=== PATIENT | female | born 1985 | race Caucasian/White ===

== ENCOUNTER 2017-05-01 08:54 | Emergency (ER) | payer OTHER ==
[~2017-05-01] VITALS: Ht 162.6 cm; Wt 53.5 kg
[2017-05-01 08:59] VITALS: Ht 162.6 cm; Wt 53.5 kg
[2017-05-01] MEDS ORDERED: SOD CHLORIDE 0.9% 1,000 ML IV STA (10:52)
--- NOTE | 2017-05-01 10:59 | ERA ---
ER Documentation Chief Complaint Date/Time DATE: 05/01/17 TIME: 10:54 Chief Complaint JUST HAD CHEMO 1 WK AGO WITH SOB, RASH, AND DIARRHEA PAIN HPI Patient is a 32-year-old female with breast cancer who presents to the ER with multiple complaints. She reports having gradual onset, constant, progressive dyspnea associated with generalized malaise and fatigue. She denies cough or chest pain. She denies pleuritic pain. She reports having sore throat and mouth pain. She reports having diarrhea with bloody stool and abdominal cramping that is similar to her previous colitis but worse. She denies vomiting. She reports having low-grade temp of 99.9 F oral. She reports having progressive vesicular pustular rash on her scalp, face and chest. Symptoms began 4 days ago and have been progressive. The patient had chemotherapy 1 week ago on the first course of a a new protocol. The patient states that she fasted for a PET scan that she was supposed to have today, but she called her oncologist, Dr. Reynolds, prior to going to the clinic, and was told to go to the ER instead. ROS All systems reviewed and are negative except as per history of present illness. Medications Home Meds Active Scripts Hydrocortisone Acetate (ANTI-ITCH) 28 Gm Oint...g., 28 GM TP BID for 5 Days Prov:AXEL VERDIN MD 05/01/17 Dicyclomine Hcl* (Bentyl*) 10 Mg Capsule, 10 MG PO QID, #20 CAP Prov:AXEL VERDIN MD 05/01/17 Doxycycline Monohydrate* (Doxycycline Monohydrate*) 100 Mg Tablet, 100 MG PO BID for 10 Days, TAB Prov:AXEL VERDIN MD 05/01/17 Reported Medications Leuprolide Acetate (Lupron Depot) 7.5 Mg Syringekit, 7.5 MG IM DIRECTED 05/01/17 Dexamethasone* (Dexamethasone*) 4 Mg Tablet, 4 MG PO Q6, TAB 05/01/17 Alprazolam* (Alprazolam*) 0.5 Mg Tablet, 0.5 MG PO DAILY Y for ANXIETY, TAB 05/01/17 Oxycodone HCl/Acetaminophen (Percocet 10-325 mg Tablet) 1 Each Tablet, 1 EACH PO DAILY Y for SEVERE PAIN LEVEL 7-10, TAB 05/01/17 Ondansetron Hcl* (Zofran*) 8 Mg Tablet, 8 MG PO Q6H Y for NAUSEA AND OR VOMITING , TAB 05/01/17 [Mercaptopurine] No Conflict Check, 50 MG PO DAILY 05/01/17 Discontinued Reported Medications Mercaptopurine (Purixan) 20 Mg/1 Ml Oral.susp, 50 MG PO 05/01/17 Allergies Allergies: Coded Allergies: Sulfa (Sulfonamide Antibiotics) (Verified Allergy, Severe, 05/01/17) acetaminophen (Verified Allergy, Severe, 05/01/17) hydrocodone (Verified Allergy, Severe, 05/01/17) rabeprazole (Verified Allergy, Severe, 05/01/17) PMhx/Soc Past medical history: Breast cancer, colitis Past surgical history: Bilateral wrist Social history: Denies tobacco or alcohol History of Surgery: Yes (abdominal surgery , b/l wrist ) Anesthesia Reaction: No Hx Neurological Disorder: No Hx Respiratory Disorders: No Hx Cardiac Disorders: No Hx Psychiatric Problems: No Hx Miscellaneous Medical Probl: Yes (rt breast ca , colitis ) Hx Alcohol Use: No Hx Substance Use: No Hx Tobacco Use: No Smoking Status: Never smoker FmHx Family History: No coronary disease, No diabetes Physical Exam Vitals Vital Signs Date Time Temp Pulse Resp B/P Pulse Ox O2 Delivery O2 Flow Rate FiO2 05/01/17 12:51 82 18 111/74 99 Room Air 05/01/17 10:34 80 18 121/75 99 Room Air 05/01/17 08:59 98.8 114 18 123/80 99 Physical Exam Const: Alert, appears anxious Head: Atraumatic, Diffuse vesicular and pustular rash on scalp and face extending to the chest Eyes: Normal Conjunctiva, No pallor, no icterus ENT: Normal External Ears and nose. Mild pharyngeal injection and mucosal inflammation Neck: Full range of motion..~ No meningismus. Resp: Clear to auscultation bilaterally, No wheezes, no rales Cardio: Mild tachycardia, regular rhythm, no murmurs Abd: Soft, non distended. Mild diffuse tenderness, no guarding, no rebound Skin: No petechiae or rashes Back: No midline or flank tenderness Ext: No cyanosis, or edema Neur: Awake and alert, Cranial nerves II through XII intact bilaterally, strength and sensation full for extremity Psych: Normal Mood and Affect Result Diagram: 05/01/17 1100 05/01/17 1100 Results 24 hrs Laboratory Tests Test 05/01/17 11:00 White Blood Count 1.710^3/ul Red Blood Count 4.1210^6/ul Hemoglobin 13.4g/dl Hematocrit 39.8% Mean Corpuscular Volume 96.6fl Mean Corpuscular Hemoglobin 32.5pg Mean Corpuscular Hemoglobin Concent 33.7g/dl Red Cell Distribution Width 12.6% Platelet Count 84308^3/UL Mean Platelet Volume 9.7fl Neutrophils % % Segmented Neutrophils % (Manual) 3% Band Neutrophils % (Manual) 5% Lymphocytes % % Lymphocytes % (Manual) 65% Reactive Lymphocytes % (Manual) 7% Monocytes % % Monocytes % (Manual) 15% Eosinophils % % Eosinophils % (Manual) 1% Basophils % % Basophils % (Manual) 2% Myelocytes % (Manual) 2% Nucleated Red Blood Cells % 1% Neutrophils # 10^3/ul Neutrophils # (Manual) 0.110^3/ul Band Neutrophils # 0.010^3/ul Absolute Lymphocytes (Manual) 1.110^3/ul Lymphocytes # 10^3/ul Reactive Lymphocytes # 0.110^3/ul Monocytes # 10^3/ul Absolute Monocytes (Manual) 0.210^3/ul Eosinophils # 10^3/ul Basophils # 10^3/ul Basophils # (Manual) 0.010^3/ul Myelocytes # 0.010^3/ul Nucleated Red Blood Cells # 10^3/ul White Cell Morphology Comment @See below Platelet Estimate NORMAL Polychromasia 3+ Poikilocytosis 1+ Anisocytosis 1+ Red Cell Morphology Comment @See below Prothrombin Time 12.2Sec Prothrombin Time Ratio 1.0 INR International Normalized Ratio 0.91 Activated Partial Thromboplast Time 31.2Sec Urine Color YELLOW Urine Clarity CLEAR Urine pH 5.0 Urine Specific [place] 1.028 Urine Ketones NEGATIVEmg/dL Urine Nitrite NEGATIVEmg/dL Urine Bilirubin NEGATIVEmg/dL Urine Urobilinogen NEGATIVEmg/dL Urine Leukocyte Esterase NEGATIVELeu/ul Urine Hemoglobin NEGATIVEmg/dL Urine Glucose NEGATIVEmg/dL Urine Total Protein NEGATIVEmg/dl Sodium Level 136mmol/L Potassium Level 4.5mmol/L Chloride Level 102mmol/L Carbon Dioxide Level 29mmol/L Anion Gap 10 Blood Urea Nitrogen 20mg/dl Creatinine 0.75mg/dl Glucose Level 91mg/dl Lactic Acid Level 0.7mmol/L Calcium Level 9.0mg/dl Total Bilirubin 0.4mg/dl Direct Bilirubin 0.00mg/dl Indirect Bilirubin 0.4mg/dl Aspartate Amino Transf (AST/SGOT) 26IU/L Alanine Aminotransferase (ALT/SGPT) 43IU/L Alkaline Phosphatase 67IU/L Troponin I < 0.012ng/ml B-Type Natriuretic Peptide 31PG/ML Total Protein 6.9g/dl Albumin 4.0g/dl Globulin 2.90g/dl Albumin/Globulin Ratio 1.37 Serum HCG, Qualitative NEGATIVE Current Medications Medications (Trade) Dose Ordered Sig/Rosa Route PRN Reason Start Time Stop Time Status Last Admin Dose Admin Sodium Chloride (NS) 1,000 ml @ 1,000 mls/hr Q1H STAT IV 05/01/17 10:52 05/01/17 11:51 DC 05/01/17 11:12 Ondansetron HCl (Zofran Inj) 4 mg ONCE STAT IV 05/01/17 11:43 05/01/17 11:47 DC 05/01/17 11:54 Morphine Sulfate (morphine) 4 mg ONCE STAT IV 05/01/17 11:43 05/01/17 11:47 DC 05/01/17 11:55 IV Flush 10 ml 10 ml STK-MED ONCE .ROUTE 05/01/17 12:23 05/01/17 12:24 DC Sodium Chloride (NS) 100 ml @ ud STK-MED ONCE .ROUTE 05/01/17 12:23 05/01/17 12:24 DC Iodixanol 100 ml 100 ml STK-MED ONCE .ROUTE 05/01/17 12:23 05/01/17 12:24 DC Cefepime HCl (Maxipime 1gm/50 ml (Pmx)) 50 ml @ 100 mls/hr ONCE ONCE IVPB 05/01/17 14:00 05/01/17 14:29 DC 05/01/17 13:55 Dicyclomine HCl (Bentyl) 10 mg ONCE ONCE PO 05/01/17 14:00 05/01/17 14:01 DC 05/01/17 13:54 Procedures/MDM EKG read by me: Time 1059, rate 78 Rhythm: Normal sinus [place]: Normal Intervals: Normal ST-T waves: no ischemic changes Ectopy: No Q-waves: No Impression: No evidence of ischemia or arrhythmia MDM: Patient is a 32-year-old female who recently started chemotherapy for breast cancer and presents to ER with multiple complaints. Her first complaint is shortness of breath. She had a mild tachycardia on ER arrival. She denies cough. Given history of cancer, CTPA was performed and is negative for pulmonary embolism. Patient's tachycardia resolved spontaneously, she had no hypoxemia, and no signs of strain on EKG. I do not believe further workup for PE is necessary at this time. She is not tachypneic. Second, the patient reports having exacerbation of her colitis with small amount of bloody stool. She has no signs of anemia and has a relatively benign abdominal exam. I will give her a prescription for Bentyl, and advised her to use her Percocet as needed. I advised her to follow-up with her oncologist for possible GI referral. Symptoms are likely due to chemotherapy. Third, the patient reports having a temperature of 99.9 Fahrenheit and generalized malaise for several days. She has not had a fever greater than 100.4 Fahrenheit. She does however , have severe neutropenia. I discussed this with her oncologist, Dr. Reynolds, and we agreed that the patient did not require admission, but would benefit from a prophylactic dose of cefepime, which is given. Fourth, the patient has an acneiform rash on her face and chest. I found evidence that this can be associated with 1 of her chemotherapeutic agents, and benefits from treatment with doxycycline and topical steroids, which I discussed with her oncologist, and will provide prescriptions for. The patient has signs of anxiety associated with the multitude of symptoms related to her chemotherapy, but she seems significantly better after receiving fluids and reassurance. She will be discharged from the hospital, and will follow up with her oncologist in the clinic later today for further counseling. She is also scheduled for a PET scan tomorrow. There is no evidence of serious condition requiring hospitalization at this time. Departure Diagnosis: Primary Impression: Colitis Additional Impressions: Neutropenia Qualified Code: D70.1 - Chemotherapy-induced neutropenia Acneiform rash Dyspnea Qualified Code: R06.02 - Shortness of breath Condition: AXEL Klein MD May 01, 2017 10:59
[2017-05-01] MEDS ORDERED: MERCAPTOPURINE PO (11:09)
[2017-05-01] MEDS ORDERED: [UNRECOGNIZED DRUG - CODE] PO (11:09)
[2017-05-01] MEDS ORDERED: ONDA8TAB9 PO (11:10)
[2017-05-01] MEDS ORDERED: OXYC-209 PO (11:11)
--- NOTE | 2017-05-01 11:11 | RADRPT ---
PROCEDURE: XR Chest. CLINICAL INDICATION: Shortness of breath. TECHNIQUE: Single frontal view. COMPARISON: None. FINDINGS: The lungs are clear. The heart size is normal. There is no pleural effusion. There is no pneumothorax. IMPRESSION: 1. Normal chest radiograph. RPTAT: QQ .Mundo Wagoner MD, Date Time Electronically viewed and signed by .Mundo Wagoner MD, on 05/01/2017 11:10 .R/
[2017-05-01] MEDS ORDERED: ALPR0.5T6 PO (11:16)
[2017-05-01] MEDS ORDERED: DEXA4TAB PO (11:20)
[2017-05-01] MEDS ORDERED: LEUP7.5S IM (11:21)
[2017-05-01 11:25] LABS: ABNORMAL IP MESSAGE 1; HEMATOCRIT 39.8 % (37.0-47.0); HEMOGLOBIN 13.4 g/dl (12.0-16.0); MEAN CORPUSCULAR HEMOGLOBIN 32.5 pg (29.0-33.0); MEAN CORPUSCULAR HGB CONC 33.7 g/dl (32.0-37.0); MEAN CORPUSCULAR VOLUME 96.6 fl (82.0-101.0); MEAN PLATELET VOLUME 9.7 fl (7.4-10.4); PLATELET COUNT 283 10^3/UL (140-415); RED BLOOD COUNT 4.12 10^6/ul (4.20-5.40); RED CELL DISTRIBUTION WIDTH 12.6 % (11.5-14.5); WHITE BLOOD COUNT 1.7 10^3/ul (4.8-10.8)
[2017-05-01 11:29] LABS: ADD UMIC NO; UR ASCORBIC ACID NEGATIVE (NEGATIVE); UR BILIRUBIN (Dip) NEGATIVE (NEGATIVE); UR BLOOD (Dip) NEGATIVE (NEGATIVE); UR CLARITY CLEAR (CLEAR); UR COLOR YELLOW (YELLOW); UR GLUCOSE (Dip) NEGATIVE (NEGATIVE); UR KETONES (Dip) NEGATIVE (NEGATIVE); UR LEUKOCYTE ESTERASE (Dip) NEGATIVE Leu/ul (NEGATIVE); UR NITRITE (Dip) NEGATIVE (NEGATIVE); UR SPECIFIC GRAVITY (Dip) 1.028 (1.003-1.030); UR TOTAL PROTEIN (Dip) NEGATIVE (NEGATIVE); UR UROBILINOGEN (Dip) NEGATIVE (NEGATIVE)
[2017-05-01 11:39] LABS: POSITIVE DIFF @See below
[2017-05-01 11:43] LABS: INR 0.91; PROTIME 12.2 Sec (12.2-14.2)
[2017-05-01] MEDS ORDERED: ONDANSETRON 4 MG INJ IV STA (11:43)
[2017-05-01] MEDS ORDERED: morphine 4 MG/ML VIAL IV STA (11:43)
[2017-05-01 11:44] LABS: PARTIAL THROMBOPLASTIN TIME 31.2 Sec (25.0-35.0)
[2017-05-01 11:47] LABS: ALANINE AMINOTRANSFERASE 43 IU/L (13-69); ALBUMIN/GLOBULIN RATIO 1.37; ALKALINE PHOSPHATASE 67 IU/L (42-121); ANION GAP 10 (8-16); ASPARTATE AMINO TRANSFERASE 26 IU/L (15-46); BILIRUBIN,INDIRECT 0.4 mg/dl (0-1.1); BILIRUBIN,TOTAL 0.4 mg/dl (0.2-1.3); BLOOD UREA NITROGEN 20 mg/dl (7-20); CARBON DIOXIDE 29 mmol/L (21-31); CHLORIDE 102 mmol/L (97-110); CREATININE 0.75 mg/dl (0.44-1.00); GLUCOSE 91 mg/dl (70-220); POTASSIUM 4.5 mmol/L (3.5-5.1); SODIUM 136 mmol/L (135-144); TOTAL PROTEIN 6.9 g/dl (6.1-8.1)
[2017-05-01 11:57] LABS: B-TYPE NATRIURETIC PEPTIDE 31 PG/ML (0-125)
[2017-05-01 11:58] LABS: TROPONIN-I < 0.012 ng/ml (0.00-0.12)
[2017-05-01 12:23] LABS: ANISOCYTOSIS 1+ (0-0); BASOPHILS % (M) 2 % (0-2); EOSINOPHILS % (M) 1 % (0-7); ERYTHROBLAST% (NRBC) (M) 1 % (0-0); MONOCYTES % (M) 15 % (0-11); MYELOCYTES % (M) 2 % (0-0); PLATELET ESTIMATE NORMAL; POIKILOCYTOSIS 1+ (0-0); POLYCHROMASIA 3+ (0-0); RBC MORPHOLOGY COMMENT @See below; REACTIVE LYMPHOCYTES% (M) 7 % (0-0)
[2017-05-01] MEDS ORDERED: IODIXANOL LOCM 100 ML BTL ONE (12:23)
[2017-05-01] MEDS ORDERED: SOD CHLORIDE 0.9% 100 ML ONE (12:23)
--- NOTE | 2017-05-01 13:08 | RADRPT ---
PROCEDURE: CT angiogram of the chest with contrast. CLINICAL INDICATION: History of breast cancer. Shortness of breath. Rule out pulmonary embolism. TECHNIQUE: CT scan of the chest with contrast was performed on a multidetector high-resolution CT scan. The patient was scanned following the uncomplicated intravenous administration of 100 ml Visi paque 320. Coronal and sagittal reformatted images were obtained from the axial source images. Stand meir CT angiogram of the chest with contrast protocols were performed. 2-D and 3-D reformats were per formed. The total exam CTDI equals 22.53 mGy and the total exam DLP equals 244.59 mGy-cm. One or more of the following dose reduction techniques were used: - Automated exposure control. - Adjustment of the mA and/or kV according to patient size. Use of iterative reconstruction technique. COMPARISON: Chest earlier same day FINDINGS: Pulmonary outflow tract, right and left main pulmonary arteries, right and left interlobar and prima ry intersegmental pulmonary arteries are well enhanced without filling defects. Specifically no evid ence of central pulmonary emboli. No evidence of pulmonary arterial hypertension. No evidence of rig ht heart strain. The aorta is unremarkable without aneurysm or dissection. The brachial cephalic artery, right and l eft subclavian arteries and proximal aspects of the right and left common carotid and vertebral brenda henry are unremarkable. The celiac axis, SMA and solitary right and left renal arteries are unremarka ble. In the superior right middle lobe is a 1.5 cm bulla. No other bulla or blebs. No evidence of pulmona ry nodules. No evidence of acute infiltrates. No evidence of pleural or pericardial effusions and pn eumothoraces. No evidence of mediastinal hilar or axillary lymphadenopathy. Images of the upper abdomen are unremarkable. The thoracic and upper abdominal naylor are unremarkabl e. There is mild dextrorotatory scoliosis of the thoracic spine. The osseous structures are otherwis e unremarkable without acute osseous findings are osteoblastic/osteolytic lesion. IMPRESSION: 1. No evidence of central pulmonary emboli. No evidence of right heart strain or pulmonary arterial hypertension. 2. No evidence of aortic aneurysm or dissection. 3. No evidence of thoracic effusions, pneumothorax, lymphadenopathy or acute infiltrates. RPTAT:AAJJ Katalina Garcia, Physician Date Time Electronically viewed and signed by Katalina Garcia Physician on 05/01/2017 13:08 BM/
[2017-05-01] MEDS ORDERED: CEFEPIME 1GM/50 ML (PMX) 50 ML IVPB ONE (14:00)
[2017-05-01] MEDS ORDERED: DICYCLOMINE 10 MG CAP PO ONE (14:00)
[2017-05-01] MEDS ORDERED: DICY10CA60 PO (14:16)
[2017-05-01] MEDS ORDERED: DOXY-220 PO (14:16)
[2017-05-01] MEDS ORDERED: HYDR28OI6 TP (14:16)
[2017-05-01 14:45] VITALS: BP 112/75; PULSE 78; RESP 18; TEMP 98.2
== END 2017-05-01 14:51 | disposition home or self-care (01) ==
LOC: E/R 08:54
DX: K52.9 Noninfective gastroenteritis and colitis, unspecified (principal); D70.1 Agranulocytosis secondary to cancer chemotherapy; R50.81 Fever presenting with conditions classified elsewhere; L27.0 Generalized skin eruption due to drugs and medicaments taken internally; C50.919 Malignant neoplasm of unspecified site of unspecified female breast
CPT/HCPCS: 36415; 71010; 71275; 80053; 81003; 83605; 83880; 84484; 84703; 85025; 85610; 85730; 93005; 96374; 96375; 99285; J0692; J2270; J2405; J7030; Q9967

== ENCOUNTER 2017-05-01 20:48 | Inpatient (IN) | payer OTHER ==
[~2017-05-01] VITALS: Ht 162.6 cm; Wt 54.0 kg
[~2017-05-01 20:48] MED LIST: ALPR0.5T6 PO; DEXA4TAB PO; DICY10CA60 PO; DOXY-220 PO; HYDR28OI6 TP; LEUP7.5S IM; MERCAPTOPURINE PO; ONDA8TAB9 PO; OXYC-209 PO; [UNRECOGNIZED DRUG - CODE] PO
[2017-05-01] MEDS ORDERED: CEFEPIME 2GM/50 ML (PMX) 50 ML IVPB STA (21:08)
[2017-05-01] MEDS ORDERED: SODIUM CHLORIDE 0.9% 1L BAG IV* STA (21:08)
[2017-05-01] MEDS ORDERED: METHYLPREDNISOLONE 125 MG INJ IV ONE (21:30)
[2017-05-01 22:00] LABS: ADD UMIC NO; UR ASCORBIC ACID NEGATIVE (NEGATIVE); UR BACTERIA FEW /HPF (NONE SEEN); UR BILIRUBIN (Dip) NEGATIVE (NEGATIVE); UR BLOOD (Dip) NEGATIVE (NEGATIVE); UR CLARITY CLEAR (CLEAR); UR COLOR YELLOW (YELLOW); UR GLUCOSE (Dip) NEGATIVE (NEGATIVE); UR KETONES (Dip) 2+ mg/dL (NEGATIVE); UR LEUKOCYTE ESTERASE (Dip) NEGATIVE Leu/ul (NEGATIVE); UR NITRITE (Dip) NEGATIVE (NEGATIVE); UR RBC 1 /HPF (0-5); UR SPECIFIC GRAVITY (Dip) 1.026 (1.003-1.030); UR TOTAL PROTEIN (Dip) NEGATIVE (NEGATIVE); UR UROBILINOGEN (Dip) NEGATIVE (NEGATIVE)
[2017-05-01] MEDS ORDERED: IBUPROFEN 800 MG TAB PO ONE (22:00)
[2017-05-01 22:03] LABS: INR 0.96; PROTIME 12.8 Sec (12.2-14.2)
[2017-05-01 22:05] LABS: ABNORMAL IP MESSAGE 1; ALBUMIN 3.6 g/dl (3.3-4.9); ALBUMIN/GLOBULIN RATIO 1.28; BILIRUBIN,INDIRECT 0.9 mg/dl (0-1.1); BILIRUBIN,TOTAL 0.9 mg/dl (0.2-1.3); CALCIUM 8.4 mg/dl (8.4-10.2); CREATININE 0.64 mg/dl (0.44-1.00); HEMATOCRIT 34.2 % (37.0-47.0); MEAN CORPUSCULAR HEMOGLOBIN 32.5 pg (29.0-33.0); MEAN CORPUSCULAR HGB CONC 35.1 g/dl (32.0-37.0); MEAN CORPUSCULAR VOLUME 92.7 fl (82.0-101.0); MEAN PLATELET VOLUME 10.2 fl (7.4-10.4); PLATELET COUNT 250 10^3/UL (140-415); POTASSIUM 3.5 mmol/L (3.5-5.1); RED BLOOD COUNT 3.69 10^6/ul (4.20-5.40); RED CELL DISTRIBUTION WIDTH 12.3 % (11.5-14.5); TOTAL PROTEIN 6.4 g/dl (6.1-8.1); WHITE BLOOD COUNT 0.8 10^3/ul (4.8-10.8)
[2017-05-01 22:06] LABS: POSITIVE DIFF @See below
[2017-05-01 22:10] LABS: PARTIAL THROMBOPLASTIN TIME 35.4 Sec (25.0-35.0)
[2017-05-01 22:35] VITALS: TEMP 99.8
[2017-05-01 22:38] LABS: EOSINOPHILS % (M) 1 % (0.0-7.0); LYMPHOCYTES # 0.3 10^3/ul (0.8-2.9); MONOCYTE # 0.3 10^3/ul (0.3-0.9); MONOCYTES % (M) 39 % (0-11)
--- NOTE | 2017-05-01 22:50 | ERA ---
ER Documentation Chief Complaint Date/Time DATE: 05/01/17 TIME: 22:41 Chief Complaint fever since today; pt was here earlier today for same reason; hx of CA HPI 32-year-old female history of breast cancer recently initiating chemotherapy 1 week ago who presents with neutropenic fever. The patient was seen here earlier today and diagnosed with a rash secondary to chemotherapy. She had a thorough workup and was discharged. However, the patient spiked a temperature at home and is now 103. She does describe left lower quadrant abdominal pain that is moderate and constant. She has a history of ulcerative colitis. She states that she has been dealing with a flare over the last several days. She denies any cough or shortness of breath, no dysuria urgency or frequency. ROS All systems reviewed and are negative except as per history of present illness. Medications Home Meds Active Scripts Hydrocortisone Acetate (ANTI-ITCH) 28 Gm Oint...g., 28 GM TP BID for 5 Days Prov:AXEL VERDIN MD 05/01/17 Dicyclomine Hcl* (Bentyl*) 10 Mg Capsule, 10 MG PO QID, #20 CAP Prov:AXEL VERDIN MD 05/01/17 Doxycycline Monohydrate* (Doxycycline Monohydrate*) 100 Mg Tablet, 100 MG PO BID for 10 Days, TAB Prov:AXEL VERDIN MD 05/01/17 Reported Medications Leuprolide Acetate (Lupron Depot) 7.5 Mg Syringekit, 7.5 MG IM DIRECTED 05/01/17 Dexamethasone* (Dexamethasone*) 4 Mg Tablet, 4 MG PO Q6, TAB 05/01/17 Alprazolam* (Alprazolam*) 0.5 Mg Tablet, 0.5 MG PO DAILY Y for ANXIETY, TAB 05/01/17 Oxycodone HCl/Acetaminophen (Percocet 10-325 mg Tablet) 1 Each Tablet, 1 EACH PO DAILY Y for SEVERE PAIN LEVEL 7-10, TAB 05/01/17 Ondansetron Hcl* (Zofran*) 8 Mg Tablet, 8 MG PO Q6H Y for NAUSEA AND OR VOMITING , TAB 05/01/17 [Mercaptopurine] No Conflict Check, 50 MG PO DAILY 05/01/17 Discontinued Reported Medications Mercaptopurine (Purixan) 20 Mg/1 Ml Oral.susp, 50 MG PO 05/01/17 Allergies Allergies: Coded Allergies: Sulfa (Sulfonamide Antibiotics) (Verified Allergy, Severe, 05/01/17) acetaminophen (Verified Allergy, Severe, 05/01/17) hydrocodone (Verified Allergy, Severe, 05/01/17) rabeprazole (Verified Allergy, Severe, 05/01/17) PMhx/Soc History of Surgery: Yes (abdominal surgery , b/l wrist ) Anesthesia Reaction: No Hx Neurological Disorder: No Hx Respiratory Disorders: No Hx Cardiac Disorders: No Hx Psychiatric Problems: No Hx Miscellaneous Medical Probl: Yes (rt breast ca , colitis ) Hx Alcohol Use: No Hx Substance Use: No Hx Tobacco Use: No Smoking Status: Never smoker FmHx Family History: No diabetes Physical Exam Vitals Vital Signs Date Time Temp Pulse Resp B/P Pulse Ox O2 Delivery O2 Flow Rate FiO2 05/01/17 22:35 99.8 100 05/01/17 20:59 103.1 140 23 112/69 100 Physical Exam General: Well developed, well nourished, no acute distress Head: Normocephalic, atraumatic. Eyes: Pupils equally reactive, EOM intact ENT: Moist mucous membranes Neck: Supple, no lymphadenopathy Respiratory: Lungs clear bilaterally, no distress Cardiovascular: RRR, no murmurs, rubs, or gallops Abdominal: Soft, focal tenderness to left lower quadrant without rebound or guarding : Deferred MSK: No edema, no unilateral swelling, 5/5 strength Neurologic: Alert and oriented, moving all extremities, normal speech, no focal weakness, no cerebellar signs Skin: No rash Psych: Normal mood Result Diagram: 05/01/17212405/01/172124 Results 24 hrs Laboratory Tests Test 05/01/17 21:25 05/01/17 21:48 White Blood Count 0.810^3/ul Red Blood Count 3.6910^6/ul Hemoglobin 12.0g/dl Hematocrit 34.2% Mean Corpuscular Volume 92.7fl Mean Corpuscular Hemoglobin 32.5pg Mean Corpuscular Hemoglobin Concent 35.1g/dl Red Cell Distribution Width 12.3% Platelet Count 01138^3/UL Mean Platelet Volume 10.2fl Neutrophils % % Segmented Neutrophils % (Manual) 20% Lymphocytes % % Lymphocytes % (Manual) 40% Monocytes % % Monocytes % (Manual) 39% Eosinophils % % Eosinophils % (Manual) 1% Basophils % % Nucleated Red Blood Cells % 0.0/100WBC Neutrophils # 10^3/ul Absolute Lymphocytes (Manual) 0.310^3/ul Lymphocytes # 0.310^3/ul Monocytes # 0.310^3/ul Absolute Monocytes (Manual) 0.310^3/ul Eosinophils # 0.010^3/ul Basophils # 10^3/ul Nucleated Red Blood Cells # 10^3/ul Prothrombin Time 12.8Sec Prothrombin Time Ratio 1.0 INR International Normalized Ratio 0.96 Activated Partial Thromboplast Time 35.4Sec Sodium Level 130mmol/L Potassium Level 3.5mmol/L Chloride Level 100mmol/L Carbon Dioxide Level 22mmol/L Anion Gap 12 Blood Urea Nitrogen 14mg/dl Creatinine 0.64mg/dl Glucose Level 110mg/dl Lactic Acid Level 1.0mmol/L Calcium Level 8.4mg/dl Total Bilirubin 0.9mg/dl Direct Bilirubin 0.00mg/dl Indirect Bilirubin 0.9mg/dl Aspartate Amino Transf (AST/SGOT) 23IU/L Alanine Aminotransferase (ALT/SGPT) 34IU/L Alkaline Phosphatase 51IU/L Total Protein 6.4g/dl Albumin 3.6g/dl Globulin 2.80g/dl Albumin/Globulin Ratio 1.28 Urine Color YELLOW Urine Clarity CLEAR Urine pH 6.0 Urine Specific [place] 1.026 Urine Ketones 2+mg/dL Urine Nitrite NEGATIVEmg/dL Urine Bilirubin NEGATIVEmg/dL Urine Urobilinogen NEGATIVEmg/dL Urine Leukocyte Esterase NEGATIVELeu/ul Urine Microscopic RBC 1/HPF Urine Microscopic WBC 2/HPF Urine Bacteria FEW/HPF Urine Hemoglobin NEGATIVEmg/dL Urine Glucose NEGATIVEmg/dL Urine Total Protein NEGATIVEmg/dl Current Medications Medications (Trade) Dose Ordered Sig/Rosa Route PRN Reason Start Time Stop Time Status Last Admin Dose Admin Sodium Chloride 1670 ml 1,670 ml BOLUS OVER 2 HOURS STAT IV* 05/01/17 21:08 05/01/17 21:09 DC 05/01/17 21:53 Cefepime HCl (Maxipime 2gm/50 ml (Pmx)) 50 ml @ 100 mls/hr ONCE STAT IVPB 05/01/17 21:08 05/01/17 21:37 DC 05/01/17 21:53 Methylprednisolone Sodium Succinate (Solu-Medrol) 125 mg ONCE ONCE IV 05/01/17 21:30 05/01/17 21:33 DC Ibuprofen (Motrin) 800 mg ONCE ONCE PO 05/01/17 22:00 05/01/17 22:01 DC 05/01/17 21:53 Filgrastim (Neupogen) 300 mcg DAILY@17 SC 05/02/17 17:00 UNV Ondansetron HCl (Zofran Inj) 4 mg BRIDGE ORDER PRN IV NAUSEA AND/OR VOMITING 05/01/17 23:00 05/02/17 22:59 Procedures/MDM EKG, MONITORS, & DIAGNOSTIC IMAGING: CT abdomen and pelvis: Pending EKG: I reviewed and interpreted a 12-lead EKG. Rhythm: Normal sinus rhythm Ectopy: None Intervals: No abnormalities ST segments: No elevations or depressions T waves: No contiguous inversions LAB INTERPRETATION: Neutropenia, normal lactic acid MEDICAL DECISION MAKING: The patient presents with neutropenic fever. Unclear source at this time. Consider viral process. However, the patient does have ulcerative colitis and appears to have a flare. The patient had a CTPA earlier today that showed no evidence of pulmonary embolism or pneumonia. However, given the patient's ulcerative colitis with focal tenderness I do believe that the CT of the abdomen and pelvis is indicated. We discussed the risks benefits alternatives and the patient is agreeable. Blood cultures will be taken the patient will be given cefepime. She will be given a 30 cc/kg bolus of saline. States her pain is well controlled and she does not want pain medication at this time. ER COURSE: I spoke with the patient's oncologist Dr. Reynolds would like the patient to be on steroids. The patient took 40 mg of prednisone earlier today, no indication for IV dosing. She remains well-appearing in the emergency room with stable vital signs, her fever has improved with antipyretics. CT is pending, to be followed by inpatient team. I kept the patient and/or family informed of laboratory and diagnostic imaging results throughout the emergency room course. DISPOSITION PLAN: Medical surgical admission for management of neutropenic fever CONSULTATION: Accepting care team and consultations: I discussed the current laboratory data, diagnostic imaging and emergency care provided. Admitting team: Dr. Boswell Admitting team indication: Insurance directed Consulting services: Dr. Reynolds, oncology Departure Diagnosis: Primary Impression: Neutropenic fever Additional Impression: Ulcerative colitis, acute Qualified Code: K51.90 - Acute ulcerative colitis without complications Condition: JOHANNA Barry MD May 01, 2017 22:50
--- NOTE | 2017-05-01 22:56 | RADRPT ---
PROCEDURE: CT Abdomen and Pelvis without contrast. CLINICAL INDICATION: Abdominal and pelvic pain. Left lower quadrant pain. Fever. History of ulcera tive colitis. TECHNIQUE: CT scan of the abdomen and pelvis without contrast was performed. Coronal and sagittal reformatted images were obtained from the axial source images. Images were reviewed on a high-resolu [employer] PACS workstation. Total exam DLP is 292.24 mGy-cm. CTDIvol is 5.75 mGy. One or more of the fo [place] dose reduction techniques were used: Automated exposure control, adjustment of the mA and/or kV according to patient size, use of iterative reconstruction technique. COMPARISON: None. FINDINGS: The lung bases are normal. There is no pleural effusion. The liver is normal in size and attenuation. There is no focal hepatic lesion. There is vicarious excretion of contrast into the gallbladder from prior CT pulmonary angiogram. The gallbladder and bile ducts are otherwise normal. The spleen is normal in size. There is no focal splenic lesion. Both adrenals are normal with no enlargement or mass. The pancreas is unremarkable with no mass or evidence of pancreatitis. There is no renal mass or hydronephrosis. There is no renal calculus or ureteral calculus. The abdominal aorta is not dilated. There is no retroperitoneal lymphadenopathy or mass. There is no pelvic lymphadenopathy or mass. The bladder and distal ureters are normal. The periappendiceal region is unremarkable with no evidence of appendicitis. There is diffuse thickening of the wall of the entire colon consistent with the clinical diagnosis o f ulcerative colitis. The bowel and mesentery are otherwise normal with no evidence of obstruction. There is no free fluid or free gas. L4 is a limbus vertebra with a small well corticated fragment anteriorly superiorly. The osseous str uctures are otherwise unremarkable with no fracture or lytic lesion. IMPRESSION: 1. Contrast in the gallbladder from prior CT pulmonary angiogram. 2. Diffuse thickening of the wall of the entire colon consistent with the clinical diagnosis of ulc erative colitis. 3. Limbus vertebra of L4, usually an asymptomatic incidental finding. 4. Otherwise normal CT scan of the abdomen and pelvis. RPTAT: QQ .Mundo Wagoner MD, MD Date Time Electronically viewed and signed by .Mundo Wagoner MD, on 05/01/2017 22:56 .R/
[2017-05-01] MEDS ORDERED: ONDANSETRON 4 MG INJ IV PRN ×2 (23:00)
[2017-05-01] MEDS ORDERED: ZOLPIDEM 5 MG TAB PO PRN (23:00)
[2017-05-01] MEDS ORDERED: LORATADINE 10 MG TAB PO ONE (23:00)
[2017-05-01] MEDS ORDERED: ALPRAZOLAM 0.5 MG TAB PO PRN (23:30)
[2017-05-01 23:55] VITALS: BP 107/65; PULSE 105; RESP 18
[2017-05-02] MEDS: SOD CHLORIDE 0.9% 1,000 ML IV SCH ×2 (00:04→13:06)
[2017-05-02 00:54] VITALS: Ht 162.6 cm; Wt 54.0 kg
[2017-05-02] MEDS ORDERED: morphine 4 MG/ML VIAL IV PRN (02:00)
[2017-05-02] MEDS ORDERED: FILGRASTIM 300 MCG INJ SC SCH ×3 (02:00→21:00)
[2017-05-02] MEDS ORDERED: morphine 2 MG INJ IV PRN (02:00)
[2017-05-02] MEDS: DIPHENHYDRAMINE 50 MG INJ IV PRN ×2 (03:42→10:28)
[2017-05-02] MEDS: CEFEPIME 2GM/50 ML (PMX) 50 ML IVPB SCH ×3 (06:45→21:17)
[2017-05-02 06:53] VITALS: BP 111/72; PULSE 75; RESP 16
[2017-05-02 07:19] LABS: ABNORMAL IP MESSAGE 1; HEMATOCRIT 36.2 % (37.0-47.0); HEMOGLOBIN 12.2 g/dl (12.0-16.0); MEAN CORPUSCULAR HEMOGLOBIN 32.1 pg (29.0-33.0); MEAN CORPUSCULAR HGB CONC 33.7 g/dl (32.0-37.0); MEAN CORPUSCULAR VOLUME 95.3 fl (82.0-101.0); MEAN PLATELET VOLUME 9.6 fl (7.4-10.4); PLATELET COUNT 272 10^3/UL (140-415); RED CELL DISTRIBUTION WIDTH 12.5 % (11.5-14.5); WHITE BLOOD COUNT 2.1 10^3/ul (4.8-10.8)
[2017-05-02 07:36] LABS: POSITIVE DIFF @See below
[2017-05-02 07:39] LABS: BILIRUBIN,INDIRECT 0.2 mg/dl (0-1.1); BILIRUBIN,TOTAL 0.2 mg/dl (0.2-1.3); TOTAL PROTEIN 5.8 g/dl (6.1-8.1)
[2017-05-02 07:40] LABS: CALCIUM 8.6 mg/dl (8.4-10.2); CREATININE 0.71 mg/dl (0.44-1.00); POTASSIUM 4.1 mmol/L (3.5-5.1)
[2017-05-02] MEDS: morphine 4 MG/ML VIAL IV PRN ×3 (08:24→21:18)
[2017-05-02 08:32] VITALS: BP 96/64; RESP 16
[2017-05-02] MEDS ORDERED: predniSONE 20 MG TAB PO SCH (09:00)
[2017-05-02] MEDS: DOXYCYCLINE 100 MG TAB PO SCH (10:10)
[2017-05-02 10:36] LABS: ANISOCYTOSIS 1+ (0-0); BASOPHILS % (M) 1 % (0-2); BURR CELLS 2+ (0-0); GIANT THROMBO% (M) 1 % (0-0); HYPOCHROMASIA 1+ (0-0); MONOCYTES % (M) 49 % (0-11); OVALOCYTES 1+ (0-0); PLATELET ESTIMATE NORMAL; POLYCHROMASIA 1+ (0-0)
--- NOTE | 2017-05-02 11:37 | HP ---
Date/Time of Note Date/Time of Note DATE: 05/02/17 TIME: 11:34 Assessment/Plan VTE Prophylaxis VTE Prophylaxis Intervention: SCD's Lines/Catheters IV Catheter Type (from [facility]): Peripheral IV Assessment/Plan Assessment/Plan 32-year-old female with: 1. Neutropenic fevers, still neutropenic, neutropenic precaution. Also with acute ulcerative colitis flare. Symptoms minor currently, will continue antibiotics along with steroid therapy, probiotics, gluten-free diet. Cultures are pending, infectious diseases consulted. Patient also followed by oncology, Reyes, patient has been started on Neupogen. Further recommendation per ID and oncology 2. Breast cancer, right breast, HER-2 positive, on chemotherapy prior to double mastectomy in the near future. Patient followed by Dr. Reynolds. 3. Ulcerative colitis, acute flare, continue antibiotics, steroids, mercaptopurine, probiotic. She is on a gluten-free diet. He will need referral to gastroenterology, she does not have one within her new insurance network yet Prophylaxis: Pepcid for GI prophylaxis, SCDs to lower extremity for DVT prophylaxis Disposition: Neutropenic isolation/precaution, infectious disease consult, oncology follow-up. HPI/ROS Admit Date/Time Admit Date/Time May 01, 2017 at 22:34 Hx of Present Illness Chief complaint: Fevers and neutropenia History of presenting illness: 32-year-old female with recent diagnosis of HER- 2 breast cancer, left breast, patient started chemotherapy last week prior to double mastectomy in the near future, patient had chemotherapy for the first time last week, she has been having lower abdominal pain and bloody loose stools all indicative of her ulcerative colitis flare for the past 5-7 days, yesterday she presented the emergency department was found to be neutropenic, evaluated in the emergency department and subsequently discharged home. At home , she had fever up to 103, therefore she returned to the emergency department. CAT scan of the abdomen and pelvis consistent with ulcerative colitis, probable flare based on the findings, she was given a dose of Solu-Medrol in the emergency department and started on cefepime. Blood cultures are pending along with UA and urine culture. We will keep her on steroids along with antibiotics and probiotics for acute ulcerative colitis flare. She is also placed on a gluten-free diet. She has received a dose of Neupogen but still neutropenic as of this morning. She is on neutropenic precautions. She is afebrile this morning, vital signs are stable. Tolerating p.o. On IV fluids. She denies genitourinary symptoms, shortness of breath, cough, chest pains, or headaches. She reports low back pain related to some cramping in her lower abdomen. Infectious disease consulted, oncologist Dr. Reynolds also following. ROS Constitutional: febrile Eyes: no complaints ENT: no complaints Respiratory: no complaints Cardiovascular: no complaints Gastrointestinal: diarrhea (Bloody), nausea, pain (Lower abdomen), vomiting Genitourinary: no complaints Musculoskeletal: no complaints Neurologic: no complaints Endocrine: no complaints Psychological: no complaints PMH/Family/Social Past Medical History HER-2 positive right breast cancer, diagnosed 04/03/17, first chemotherapy done last week, planned double mastectomy in the near future after chemotherapy. Ulcerative colitis, diagnosed at age 12 Past Surgical History Status post exploratory laparotomy 20 years ago Status post appendectomy 20 years ago Family History Significant Family History: no pertinent family hx Social History Alcohol Use: occasionally Smoking Status: Never smoker Drug Use: marijuana (Daily) Exam/Review of Systems Vital Signs Vitals Vital Signs Date Time Temp Pulse Resp B/P Pulse Ox O2 Delivery O2 Flow Rate FiO2 05/02/17 08:32 97.9 74 16 96/64 99 05/02/17 06:53 Room Air Intake and Output 05/01/17 05/01/17 05/02/17 15:00 23:00 07:00 Intake Total 855 ml Output Total 1 ml Balance 854 ml Exam Constitutional: alert, oriented, well developed Respiratory: clear to auscultation, normal air movement Cardiovascular: nl pulses, regular rate and rhythm Gastrointestinal: soft, tender (Lower abdomen, mild) Musculoskeletal: nl extremities to inspection Extremities: normal pulses, other (No edema, clubbing or cyanosis) Neurological: SENIOR IT ASSISTANT II-XII intact, nl mental status, nl speech, nl strength Labs Result Diagram: 05/02/1764605/02/17646 Medications Medications Home medications: See medication reconciliation on admission Current Medications Diphenhydramine HCl (Benadryl) 25 mg Q6 PRN IV ITCHING Last administered on t 10:28; Admin Dose 25 MG; Start 05/01/17 at 23:00 Ondansetron HCl 4 mg 4 mg Q6 PRN IV NAUSEA AND/OR VOMITING Last administered on 05/02/17 08:23; Admin Dose 4 MG; Start 05/01/17 at 23:00 Sodium Chloride 1,000 ml @ 75 mls/hr [id number] IV Last administered on 00:04; Admin Dose 75 MLS/HR; Start 05/01/17 at 23:00 Cefepime HCl (Maxipime 2gm/50 ml (Pmx)) 50 ml @ 100 mls/hr Q8 IVPB Last administered on 05/02/17 06:45; Admin Dose 100 MLS/HR; Start 05/02/17 at 06: 00 Alprazolam (Xanax) 0.5 mg DAILY PRN PO ANXIETY Last administered on 05/02/17 01:30; Admin Dose 0.5 MG; Start 05/01/17 at 23:30 Filgrastim (Neupogen) 300 mcg DAILY@02 SC Last administered on 05/02/17 01:30 ; Admin Dose 300 MCG; Start 05/02/17 at 02:00 Morphine Sulfate (morphine) 2 mg Q3 PRN IV MILD PAIN LEVEL 1-3 Last administered on 05/02/17 03:43; Admin Dose 2 MG; Start 05/02/17 at 02:00 Morphine Sulfate (morphine) 3 mg Q3H PRN IV MODERATE PAIN LEVEL 4-6; Start 05/09 at 02:00 Morphine Sulfate (morphine) 4 mg Q3H PRN IV SEVERE PAIN LEVEL 7-10 Last administered on 05/02/17 08:24; Admin Dose 4 MG; Start 05/02/17 at 02:00 Prednisone (Prednisone) 40 mg DAILY PO Last administered on 05/02/17 10:11; Admin Dose 40 MG; Start 05/02/17 at 09:00 Doxycycline Hyclate (Vibramycin) 100 mg DAILY PO Last administered on 10:10; Admin Dose 100 MG; Start 05/02/17 at 09:00 Procedures Procedures PROCEDURE: CT Abdomen and Pelvis without contrast. CLINICAL INDICATION: Abdominal and pelvic pain. Left lower quadrant pain. Fever. History of ulcerative colitis. TECHNIQUE: CT scan of the abdomen and pelvis without contrast was performed. Coronal and sagittal reformatted images were obtained from the axial source images. Images were reviewed on a high-resolution PACS workstation. Total exam DLP is 292.24 mGy-cm. CTDIvol is 5.75 mGy. One or more of the following dose reduction techniques were used: Automated exposure control, adjustment of the mA and/or kV according to patient size, use of iterative reconstruction technique. COMPARISON: None. FINDINGS: The lung bases are normal. There is no pleural effusion. The liver is normal in size and attenuation. There is no focal hepatic lesion. There is vicarious excretion of contrast into the gallbladder from prior CT pulmonary angiogram. The gallbladder and bile ducts are otherwise normal. The spleen is normal in size. There is no focal splenic lesion. Both adrenals are normal with no enlargement or mass. The pancreas is unremarkable with no mass or evidence of pancreatitis. There is no renal mass or hydronephrosis. There is no renal calculus or ureteral calculus. The abdominal aorta is not dilated. There is no retroperitoneal lymphadenopathy or mass. There is no pelvic lymphadenopathy or mass. The bladder and distal ureters are normal. The periappendiceal region is unremarkable with no evidence of appendicitis. There is diffuse thickening of the wall of the entire colon consistent with the clinical diagnosis of ulcerative colitis. The bowel and mesentery are otherwise normal with no evidence of obstruction. There is no free fluid or free gas. L4 is a limbus vertebra with a small well corticated fragment anteriorly superiorly. The osseous structures are otherwise unremarkable with no fracture or lytic lesion. IMPRESSION: 1. Contrast in the gallbladder from prior CT pulmonary angiogram. 2. Diffuse thickening of the wall of the entire colon consistent with the clinical diagnosis of ulcerative colitis. 3. Limbus vertebra of L4, usually an asymptomatic incidental finding. 4. Otherwise normal CT scan of the abdomen and pelvis. RPTAT: QQ .Mundo Wagoner MD, MD Date Time Electronically viewed and signed by .Mundo Wagoner MD, on 05/01/2017 22:56 JONAH SNOW May 02, 2017 11:37
[2017-05-02] MEDS ORDERED: MERCAPTOPURINE 50 MG PO SCH (12:00)
[2017-05-02] MEDS ORDERED: ALPRAZOLAM 0.5 MG TAB PO PRN (12:00)
[2017-05-02] MEDS ORDERED: OXYCODONE/ACETAMINOPHEN (10/325) TAB PO PRN (12:00)
[2017-05-02] MEDS: FAMOTIDINE 20 MG TAB PO SCH ×2 (12:30→21:15)
[2017-05-02] MEDS ORDERED: CYCLOBENZAPRINE 10 MG TAB PO PRN (15:30)
--- NOTE | 2017-05-02 15:40 | CONS ---
DATE OF ADMISSION: 05/01/2017 DATE OF CONSULTATION: 05/02/2017 TYPE OF CONSULTATION: Infectious Disease. REASON FOR CONSULTATION: Antibiotic management. HISTORY OF PRESENT ILLNESS: Allyson Antoine is a 32-year-old female with recent diagnosis of HER-2 breast cancer of the left breast. She started chemotherapy last week prior to double mastectomy in the near future. The patient had chemotherapy and was having abdominal pain and bloody loose stools all indicative of the fact that she has ulcerative colitis and has had a flare for the past 5 to 7 days. On the , she was found to be neutropenic and evaluated in the emergency room, subsequently discharged. She then developed a fever of 103 and returned to the emergency room. A CAT scan of t he abdomen and pelvis is consistent with ulcerative colitis, probable flare. She was given a dose o f Solu-Medrol in the emergency room and started on cefepime. Blood cultures are pending along with urinalysis and cultures. She is on neutropenic precautions. Dr. Reynolds has been asked to follow the patient as well. Today, her white count is 2.1, H and H of 12.2 and 36.2, platelet count 272,000. BUN and creatinine are 12/0.71. She has virtually at this 1 poly and 3 bands, 4 neutrophils and __ ___count of 2.1. So she is absolutely neutropenic. Urine culture so far is negative. A CT scan of the abdomen and pelvis is as outlined. PAST MEDICAL HISTORY: Operations as outlined. FAMILY HISTORY: Noncontributory. PAST SURGICAL HISTORY: Status post exploratory laparotomy 20 years ago. Status post appendectomy 2 0 years ago. FAMILY HISTORY: Noncontributory. SOCIAL HISTORY: She is a daily marijuana user. She does not drink or abuse drugs. ALLERGIES: NONE TO PENICILLIN, SULFA OR FOODS. MEDICATIONS: Per chart. REVIEW OF SYSTEMS: As per HPI. PHYSICAL EXAMINATION: GENERAL: The patient is a well-developed, well-nourished female who is alert, responsive, in no acu te distress. VITAL SIGNS: Stable. She is afebrile. SKIN: Without generalized rash. HEENT: Within normal limits. NECK: Supple. LYMPH NODES: None palpable. CHEST: Decreased breath sounds at the bases. HEART: Without murmur or gallop. ABDOMEN: Soft, nontender, without organosplenomegaly or masses. EXTREMITIES: Without cyanosis, clubbing, or edema. RECTAL AND GENITAL: Deferred. NEUROLOGIC: No focal neurological abnormalities. IMPRESSION AND PLAN: The patient is an unfortunate 32-year-old female who in addition to ulcerative colitis, now has breast cancer and she is neutropenic secondary to chemotherapy. We will continue her on current therapy. I will dictate my findings to Dr. Betancourt. Dictated By: AVELINO GALLAGHER MD, JD/SHERI Conf#: [id number] DID#: [id number]
[2017-05-02 16:12] VITALS: BP 105/70; RESP 16
[2017-05-02 19:18] VITALS: BP 110/66; RESP 18
[2017-05-02] MEDS ORDERED: predniSONE 10 MG TAB PO SCH (21:00)
[2017-05-02] MEDS: LACTOBACILLUS RHAMNOSUS CAP PO SCH (21:15)
--- NOTE | 2017-05-02 21:58 | CONS ---
Date/Time of Note Date/Time of Note DATE: 05/02/17 TIME: 21:47 Assessment/Plan Assessment/Plan Chief Complaint/Hosp Course #Right-sided breast cancer, ER/NE negative HER-2 positive, with a component of DCIS -pt is cycle 1 day 9 of TCHP -pt will need a total of 6 cycles followed by 1 year of Herceptin -MUGA scan was done which revealed a normal EF at 60% #Neutropenic fevers -likely from her ulcerative colitis -continue neupogen -appreciate ID recs. continue broad spectrum antibiotics #Acenaform rash -This is likely secondary to the steroids patient was given as well as the Perjeta and Herceptin -We'll not dose reduce just yet and we'll continue to follow the rash -continue doxycycline with clindamycin #Ulcerative colitis flare -continue prednisone 40 mg q day and 6MP as ordered -continue to follow her abdominal pain and diarrhea. -Once her symptoms have improved we'll continue with cycle 2. #Extensive family history of breast cancer -this includes 6 family members on her mother side at least 2 who had breast cancer earlier than age 40. -BRCA testing has been obtained by patient's breast surgeon #Breast pain -Patient is allergic to [place] -She was told to continue Tylenol for her breast pain #Concern for infertility -I explained to the patient she does not have time to get her eggs frozen prior to starting therapy -we will start Lupron at this time to effectively halt her menstruation and preserve her remaining eggs. I advised her to proceed with egg preservation once she completes her therapy Problems: Consultation Date/Type/Reason Admit Date/Time May 01, 2017 at 22:34 Date of Consultation: May 02, 2017 Type of Consultation: Oncology Reason for Consultation neutropenic fever Referring Provider: JONAH SNOW Hx of Present Illness 32-year-old female who first felt a breast mass on March 14. The mass became more painful. There were no associated skin changes. 03/23/17 diagnostic mammogram done with breast ultrasound which revealed a specific o'clock position 3-4 cm from the nipple a heparin clinic mass was identified and measured 3.5 x 3.2 x 0.8 cm in size abutting to either hypo- acholic hypervascular masses measuring 5 mm and the second measuring 3 mm in size. Ultrasound-guided needle biopsy was done of the 3.5 cm mass 03/28/17: Right breast biopsy at 6:00 revealed high-grade invasive carcinoma grade 3, with associated ductal carcinoma in situ. This was the ER-negative NE- negative HER-2/petey 2+ by IHC and positive by FISH analysis Patient denies any systemic symptoms besides tenderness of the right breast. She is complaining of anxiety after her diagnosis of breast cancer. Patient is concerned about her future ability to have children. She wants to do egg freezing. 04/24/17: Patient started her first dose of T. CHP She is currently complaining of of full body acneiform rash especially in her trunk and her face She is also complaining of flaring of her ulcerative colitis, and complains of severe abdominal pain with bowel movements as well as bloody diarrhea Patient also complaining of shortness of breath 05/01/17: CTA was done for shortness of breath which revealed no evidence of PE She is now admitted for neutropenic fevers with temp up to 103 Eyes: no complaints ENT: no complaints Respiratory: no complaints Cardiovascular: no complaints Gastrointestinal: diarrhea (Bloody), nausea, pain (Lower abdomen), vomiting Genitourinary: no complaints Musculoskeletal: no complaints Neurologic: no complaints Psychological: no complaints Past Medical History Ulcerative colitis diagnosed in 1995 for which she takes mercaptopurine Past Surgical History Past Surgical Hx: no surgical history Family History Significant Family History: other (Patient has had 6 female family memberson her mother side both breast and ovarian cancer. Her grandmother was diagnosed earlier than 30 years. her mother was diagnosed at 60 years. her other causes were diagnosed in their 40s and 50s) Social History Alcohol Use: occasionally Smoking Status: Never smoker Drug Use: marijuana (Daily) Exam/Review of Systems Vital Signs Vitals Vital Signs Date Time Temp Pulse Resp B/P Pulse Ox O2 Delivery O2 Flow Rate FiO2 05/02/17 19:18 98.9 76 18 110/66 98 05/02/17 06:53 Room Air Intake and Output 05/01/17 05/01/17 05/02/17 15:00 23:00 07:00 Intake Total 855 ml Output Total 1 ml Balance 854 ml Exam Constitutional: alert, distress, oriented Psych: depression Head: normocephalic, other (acneaform rash over face and head) ENMT: nl external ears & nose Neck: supple Respiratory: clear to auscultation, normal air movement Cardiovascular: regular rate and rhythm Gastrointestinal: soft Results Result Diagram: 05/02/17 0647 05/02/17 0647 Results 24 hrs Laboratory Tests Test 05/01/17 21:48 05/01/17 23:19 05/02/17 00:13 05/02/17 06:47 Urine Color YELLOW Urine Clarity CLEAR Urine pH 6.0 Urine Specific [place] 1.026 Urine Ketones 2+ H Urine Nitrite NEGATIVE Urine Bilirubin NEGATIVE Urine Urobilinogen NEGATIVE Urine Leukocyte Esterase NEGATIVE Urine Microscopic RBC 1 Urine Microscopic WBC 2 Urine Bacteria FEW A Urine Hemoglobin NEGATIVE Urine Glucose NEGATIVE Urine Total Protein NEGATIVE Lactic Acid Level 1.0 1.7 White Blood Count 2.1 #L Red Blood Count 3.80 L Hemoglobin 12.2 Hematocrit 36.2 L Mean Corpuscular Volume 95.3 Mean Corpuscular Hemoglobin 32.1 Mean Corpuscular Hemoglobin Concent 33.7 Red Cell Distribution Width 12.5 Platelet Count 272 Mean Platelet Volume 9.6 Neutrophils % Segmented Neutrophils % (Manual) 1 L Band Neutrophils % (Manual) 3 Lymphocytes % Lymphocytes % (Manual) 47 Monocytes % Monocytes % (Manual) 49 H Eosinophils % Basophils % Basophils % (Manual) 1 Nucleated Red Blood Cells % 0.0 Neutrophils # Neutrophils # (Manual) 0.0 L Band Neutrophils # 0.0 Absolute Lymphocytes (Manual) 0.9 Lymphocytes # Monocytes # Absolute Monocytes (Manual) 1.0 H Eosinophils # Basophils # Basophils # (Manual) 0.0 Nucleated Red Blood Cells # Platelet Estimate NORMAL Giant Platelets 1 H Polychromasia 1+ Hypochromasia 1+ Anisocytosis 1+ Macrocytosis 1+ Ovalocytes 1+ Sodium Level 137 Potassium Level 4.1 Chloride Level 105 Carbon Dioxide Level 27 Anion Gap 9 Blood Urea Nitrogen 12 Creatinine 0.71 Glucose Level 130 Calcium Level 8.6 Total Bilirubin 0.2 Direct Bilirubin 0.00 Indirect Bilirubin 0.2 Aspartate Amino Transf (AST/SGOT) 20 Alanine Aminotransferase (ALT/SGPT) 33 Alkaline Phosphatase 40 L Total Protein 5.8 L Albumin 3.0 L Medications Medications Current Medications Diphenhydramine HCl (Benadryl) 25 mg Q6 PRN IV ITCHING Last administered on t 10:28; Admin Dose 25 MG; Start 05/01/17 at 23:00 Ondansetron HCl 4 mg 4 mg Q6 PRN IV NAUSEA AND/OR VOMITING Last administered on 05/02/17 08:23; Admin Dose 4 MG; Start 05/01/17 at 23:00 Sodium Chloride 1,000 ml @ 75 mls/hr [id number] IV Last administered on 13:06; Admin Dose 75 MLS/HR; Start 05/01/17 at 23:00 Cefepime HCl (Maxipime 2gm/50 ml (Pmx)) 50 ml @ 100 mls/hr Q8 IVPB Last administered on 05/02/17 21:17; Admin Dose 100 MLS/HR; Start 05/02/17 at 06: 00 Morphine Sulfate (morphine) 2 mg Q3 PRN IV MILD PAIN LEVEL 1-3 Last administered on 05/02/17 03:43; Admin Dose 2 MG; Start 05/02/17 at 02:00 Morphine Sulfate (morphine) 3 mg Q3H PRN IV MODERATE PAIN LEVEL 4-6; Start 05/09 at 02:00 Morphine Sulfate (morphine) 4 mg Q3H PRN IV SEVERE PAIN LEVEL 7-10 Last administered on 05/02/17 21:18; Admin Dose 4 MG; Start 05/02/17 at 02:00 Doxycycline Hyclate (Vibramycin) 100 mg DAILY PO Last administered on 10:10; Admin Dose 100 MG; Start 05/02/17 at 09:00 Oxycodone/ Acetaminophen (Endocet (10/ 325)) 1 tab Q6 PRN PO SEVERE PAIN LEVEL 7-10; Start 05/02/17 at 12:00 Alprazolam (Xanax) 0.5 mg Q8H PRN PO ANXIETY; Start 05/02/17 at 12:00 Lactobacillus Acidophilus/ Rhamnosus (Culturelle) 1 cap BID PO Last administered on 05/02/17 21:15; Admin Dose 1 CAP; Start 05/02/17 at 21:00 Famotidine (Pepcid) 20 mg BID PO Last administered on 05/02/17 21:15; Admin Dose 20 MG; Start 05/02/17 at 12:30 Mercaptopurine (Purinethol) 50 mg DAILY PO ; Start 05/03/17 at 09:00 Prednisone (Prednisone) 40 mg DAILY PO ; Start 05/03/17 at 09:00 Cyclobenzaprine HCl (Flexeril) 5 mg PRN PRN PO MUSCLE SPASMS; Start 05/02/17 at 15:30 Filgrastim (Neupogen) 300 mcg DAILY@17 SC Last administered on 05/02/17t 21:17 ; Admin Dose 300 MCG; Start 05/02/17 at 21:00 NA CHRISTIANSEN M.D. May 02, 2017 21:58
[2017-05-03] MEDS ORDERED: DIPHENHYDRAMINE 50 MG INJ IV ONE (01:30)
[2017-05-03] MEDS ORDERED: ZOLPIDEM 5 MG TAB PO ONE (01:30)
[2017-05-03] MEDS ORDERED: ZOLPIDEM 5 MG TAB PO PRN (01:30)
[2017-05-03] MEDS: SOD CHLORIDE 0.9% 1,000 ML IV SCH (01:40)
[2017-05-03 02:10] VITALS: BP 99/64; RESP 18
[2017-05-03] MEDS: CEFEPIME 2GM/50 ML (PMX) 50 ML IVPB SCH ×2 (05:07→21:37)
[2017-05-03 08:28] VITALS: BP 107/63; RESP 18
[2017-05-03] MEDS ORDERED: MERCAPTOPURINE 50 MG TAB PO SCH (09:00)
[2017-05-03] MEDS ORDERED: predniSONE 20 MG TAB PO SCH (09:00)
[2017-05-03] MEDS: LACTOBACILLUS RHAMNOSUS CAP PO SCH ×2 (09:59→21:39)
[2017-05-03] MEDS: FAMOTIDINE 20 MG TAB PO SCH ×2 (10:00→21:39)
[2017-05-03] MEDS: DOXYCYCLINE 100 MG TAB PO SCH (10:03)
[2017-05-03 11:42] LABS: ABNORMAL IP MESSAGE 1; HEMOGLOBIN 10.8 g/dl (12.0-16.0); MEAN CORPUSCULAR HEMOGLOBIN 31.6 pg (29.0-33.0); MEAN CORPUSCULAR HGB CONC 32.7 g/dl (32.0-37.0); MEAN CORPUSCULAR VOLUME 96.5 fl (82.0-101.0); MEAN PLATELET VOLUME 9.8 fl (7.4-10.4); NUCLEATED RED BLOOD CELLS% 0.2 /100WBC (0.0-0.0); PLATELET COUNT 273 10^3/UL (140-415); RED BLOOD COUNT 3.42 10^6/ul (4.20-5.40); RED CELL DISTRIBUTION WIDTH 13.1 % (11.5-14.5); WHITE BLOOD COUNT 10.7 10^3/ul (4.8-10.8)
[2017-05-03 11:51] LABS: POSITIVE DIFF @See below
[2017-05-03 11:57] LABS: INR 0.98
[2017-05-03] MEDS: morphine 4 MG/ML VIAL IV PRN ×2 (12:00→20:51)
[2017-05-03 12:03] LABS: CALCIUM 8.2 mg/dl (8.4-10.2); CREATININE 0.69 mg/dl (0.44-1.00); MAGNESIUM 1.6 mg/dl (1.7-2.5); PHOSPHORUS 2.3 mg/dl (2.5-4.9); POTASSIUM 3.3 mmol/L (3.5-5.1)
--- NOTE | 2017-05-03 12:03 | PN ---
Date/Time of Note Date/Time of Note DATE: 05/03/17 TIME: 11:56 Assessment/Plan VTE Prophylaxis VTE Prophylaxis Intervention: SCD's Lines/Catheters IV Catheter Type (from Nrs): Peripheral IV Assessment/Plan Assessment/Plan 32-year-old female with: 1. Neutropenic fevers, still neutropenic, neutropenic precaution. Also with acute ulcerative colitis flare. Symptoms improving, continue antibiotics per ID along with steroid therapy, probiotics, gluten-free diet. Cultures NGTD, appreciate ID recs. Patient also followed by oncology, Dr Reynolds , patient on Neupogen and CBC much better but diff pending. Further recommendation per ID and oncology 2. Breast cancer, right breast, HER-2 positive, on chemotherapy prior to double mastectomy in the near future. Mediport placement today. Patient followed by Dr. Reynolds. 3. Ulcerative colitis, acute flare, continue antibiotics, steroids, mercaptopurine, probiotic. She is on a gluten-free diet. He will need referral to gastroenterology at discharge, she does not have one within her new insurance network yet Prophylaxis: Pepcid for GI prophylaxis, SCDs to lower extremity for DVT prophylaxis Disposition: Neutropenic isolation/precaution, infectious disease and oncology following. Mediport placement today and d/c plan tomorrow if OK with ID and Oncology. Subjective 24 Hr Interval Summary Free Text/Dictation Appreciate ID and Oncology recs Patient afebrile since admission now, one episode of diarrhea and abdo pain overnight but none so far this AM On rx for UC flare and Neutropenia post chemo for Breast CA Mediport placement today per Dr Reynolds D?c plan tomorrow if stable and Neutropenia hopefully resolved Exam/Review of Systems Vital Signs Vitals Vital Signs Date Time Temp Pulse Resp B/P Pulse Ox O2 Delivery O2 Flow Rate FiO2 05/03/17 08:28 98.3 75 18 107/63 98 05/02/17 06:53 Room Air Intake and Output 05/02/17 05/02/17 05/03/17 15:00 23:00 07:00 Intake Total 750 ml 1040 ml 1300 ml Balance 750 ml 1040 ml 1300 ml Exam Constitutional: alert, oriented, well developed Respiratory: clear to auscultation, normal air movement Cardiovascular: nl pulses, regular rate and rhythm Gastrointestinal: non-tender, soft Musculoskeletal: nl extremities to inspection Extremities: normal pulses 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, nl mental status, nl speech, nl strength Results Result Diagram: 05/03/17 1046 05/02/17 0647 Results 24 hrs Laboratory Tests Test 05/03/17 10:46 White Blood Count 10.7 # Red Blood Count 3.42 L Hemoglobin 10.8 L Hematocrit 33.0 L Mean Corpuscular Volume 96.5 Mean Corpuscular Hemoglobin 31.6 Mean Corpuscular Hemoglobin Concent 32.7 Red Cell Distribution Width 13.1 Platelet Count 273 Mean Platelet Volume 9.8 Neutrophils % Lymphocytes % Monocytes % Eosinophils % Basophils % Nucleated Red Blood Cells % 0.2 H Neutrophils # Lymphocytes # Monocytes # Eosinophils # Basophils # Nucleated Red Blood Cells # Medications Medications Current Medications Diphenhydramine HCl (Benadryl) 25 mg Q6 PRN IV ITCHING Last administered on 10:28; Admin Dose 25 MG; Start 05/01/17 at 23:00 Ondansetron HCl 4 mg 4 mg Q6 PRN IV NAUSEA AND/OR VOMITING Last administered on 05/02/17 08:23; Admin Dose 4 MG; Start 05/01/17 at 23:00 Sodium Chloride 1,000 ml @ 75 mls/hr [id number] IV Last administered on 01:40; Admin Dose 75 MLS/HR; Start 05/01/17 at 23:00 Cefepime HCl (Maxipime 2gm/50 ml (Pmx)) 50 ml @ 100 mls/hr Q8 IVPB Last administered on 05/03/17 05:07; Admin Dose 100 MLS/HR; Start 05/02/17 at 06: 00 Morphine Sulfate (morphine) 2 mg Q3 PRN IV MILD PAIN LEVEL 1-3 Last administered on 05/02/17 03:43; Admin Dose 2 MG; Start 05/02/17 at 02:00 Morphine Sulfate (morphine) 3 mg Q3H PRN IV MODERATE PAIN LEVEL 4-6; Start 05/09 at 02:00 Morphine Sulfate (morphine) 4 mg Q3H PRN IV SEVERE PAIN LEVEL 7-10 Last administered on 05/02/17 21:18; Admin Dose 4 MG; Start 05/02/17 at 02:00 Doxycycline Hyclate (Vibramycin) 100 mg DAILY PO Last administered on 10:03; Admin Dose 100 MG; Start 05/02/17 at 09:00 Oxycodone/ Acetaminophen (Endocet (10/ 325)) 1 tab Q6 PRN PO SEVERE PAIN LEVEL 7-10; Start 05/02/17 at 12:00 Alprazolam (Xanax) 0.5 mg Q8H PRN PO ANXIETY; Start 05/02/17 at 12:00 Lactobacillus Acidophilus/ Rhamnosus (Culturelle) 1 cap BID PO Last administered on 05/03/17 09:59; Admin Dose 1 CAP; Start 05/02/17 at 21:00 Famotidine (Pepcid) 20 mg BID PO Last administered on 05/03/17 10:00; Admin Dose 20 MG; Start 05/02/17 at 12:30 Mercaptopurine (Purinethol) 50 mg DAILY PO Last administered on 05/03/17 10: 16; Admin Dose 50 MG; Start 05/03/17 at 09:00 Prednisone (Prednisone) 40 mg DAILY PO Last administered on 05/03/17 10:01; Admin Dose 40 MG; Start 05/03/17 at 09:00 Cyclobenzaprine HCl (Flexeril) 5 mg PRN PRN PO MUSCLE SPASMS Last administered on 05/02/17 23:49; Admin Dose 5 MG; Start 05/02/17 at 15:30 Filgrastim (Neupogen) 300 mcg DAILY@17 SC Last administered on 05/02/17 21:17 ; Admin Dose 300 MCG; Start 05/02/17 at 21:00 Zolpidem Tartrate (Ambien) 10 mg HS PRN PO INSOMNIA; Start 05/03/17 at 01:30 JONAH SNOW May 03, 2017 12:03
[2017-05-03 12:45] VITALS: BP 125/79; RESP 18
[2017-05-03 13:37] LABS: BASOPHILS % (M) 1 % (0-2); MONOCYTES % (M) 23 % (0-11); MYELOCYTES % (M) 2 % (0-0); PLATELET ESTIMATE NORMAL; POIKILOCYTOSIS 2+ (0-0); POLYCHROMASIA 1+ (0-0); REACTIVE LYMPHOCYTES% (M) 1 % (0-0)
[2017-05-03] MEDS ORDERED: HEPARIN 1000 UNITS/ML 10 ML INJ ONE (13:52)
[2017-05-03] MEDS ORDERED: LIDOCAINE 1%/EPI 30 ML INJ ONE (13:53)
[2017-05-03] MEDS ORDERED: CEFAZOLIN 1 GM/50 ML (PMX) 50 ML IVPB ONE ×2 (14:00→14:26)
[2017-05-03] MEDS ORDERED: MAGNESIUM SULFATE 3 GM in SOD CHLORIDE 0.9% 100 ML IVPB ONE (14:00)
[2017-05-03] MEDS ORDERED: POLYMYXIN/BACITRACIN 1L IRRIG IRR ONE (14:00)
[2017-05-03] MEDS ORDERED: FENTAnyl 50 MCG/ML VIAL ONE ×2 (14:26)
[2017-05-03] MEDS ORDERED: DIPHENHYDRAMINE 50 MG INJ ONE (14:26)
--- NOTE | 2017-05-03 14:56 | PN ---
DATE: 05/03/2017 SUBJECTIVE: No events overnight. The patient is alert, feels better. Looks comfortable, no fevers . VITAL SIGNS: Temperature 98.6, pulse 75, respirations 18, blood pressure 125/79, saturation 97% on room air. LABORATORIES: WBC 10.7, platelets 273, no shift. BUN 10, creatinine 0.69. ANTIMICROBIALS: 1. Doxycycline. 2. Cefepime. PHYSICAL EXAMINATION: GENERAL: Well-developed, middle-aged white woman who is alert, in no distress. HEENT: Head atraumatic, normocephalic. Sclerae anicteric. Buccal mucosa pink. NECK: Supple. CHEST: Rise symmetrical. Breath sounds clear. HEART: S1, S2. ABDOMEN: Soft, bowel tones present. EXTREMITIES: Without cyanosis or edema. ASSESSMENT: 1. Neutropenic fevers, resolving. 2. Neutropenia with anemia and leukopenia, white blood cell count increased. The patient remains o n Neupogen and prednisone. 3. Ulcerative colitis exacerbation. 4. Breast, in chemotherapy. PLAN: The patient is clinically and hemodynamically stable, covered with antibiotics. Cultures had been negative. Oncology on case. Continue present care. Dictated By: [employer] for AVELINO PARRA/SHERI Conf#: [id number] DID#: [id number]
[2017-05-03] MEDS ORDERED: POTASSIUM PHOSPHATE 30 MM in SOD CHLORIDE 0.9% 250 ML IVPB ONE (15:00)
--- NOTE | 2017-05-03 15:55 | RADRPT ---
PROCEDURE: FLUOROSCOPIC AND ULTRASONOGRAPHIC-GUIDED PLACEMENT OF LEFT CHEST PORT. CLINICAL INDICATION: History of right breast cancer. Venous access for chemotherapy. TECHNIQUE: INTRAPROCEDURE MEDICATIONS: PB antibiotic solution 40 cc applied topically. 1 gram Ancef intravenous ly, intra-op. IV Versed and Fentanyl per protocol. TECHNIQUE: Informed consent was obtained. The procedure, risks, benefits, complications and alternat alisia were explained to the patient. Risks including bleeding, infection, and pneumothorax were expl ained. The patient understood and was willing to proceed. A procedural pause was performed. The patient's name, date of , and procedure to be performed w ere verified. The central line was inserted with all elements of maximal sterile barrier technique. All of the fol lowing were used: head covering, facial mask, sterile gown, sterile gloves, a large sterile sheet, h and hygiene, and 2% chlorhexidine for cutaneous antisepsis. The left neck and anterior/superior chest wall were prepped and draped in usual sterile fashion. Limited sonography of the left neck was then performed. Noted is a patent left internal jugular vein . Following the local injection of 1% lidocaine, the left internal jugular vein was punctured under so nographic guidance with a 20-gauge needle through which a 0.018 inch floppy tip guidewire was advanc ed into the superior vena cava with fluoroscopic guidance. The tract was dilated to 5 Belgian and t he wire was then replaced with a 0.035 in Glidewire. Serial dilatation was then performed and a 7 F rench peel away sheath was introduced. A site just inferior to the clavicle in the superior anterior left chest wall was localized. One per cent lidocaine was used as local anesthesia. A transverse 3 cm incision was made utilizing a 15 blad e scalpel. Utilizing blunt dissection a subcutaneous pocket was created inferior to the incision. Th e cavity was flushed with approximately 40 cc of PB antibiotic solution. The catheter was tunneled underneath the skin from the newly created pocket to the puncture site in the neck. The central line catheter was pulled through the tract. The catheter was then advanced thr ough the sheath until the tip was positioned in the right atrium. The peel-away sheath was removed. The catheter was flushed and clamped. The catheter was then connected to the 6.6 Belgian Angiodynamics power port. The port was then placed into the pocket. Prior to closing the instrument and sponge count was verified and was correct. The subcutaneous tissue was closed with 3-0 Vicryl interrupted suture. The skin at the site of the pock et and in the neck was closed with 4-0 Vicryl suture in a running subcuticular technique. The port w as flushed with 2000 units of heparin in 2 cc utilizing a Gardiner needle. The needle was removed. A dr essing was applied. The patient tolerated procedure well. COMPARISON: None. FINDINGS: Ultrasound images were recorded and stored in the patient's medical record. Final radiographic images demonstrate the tip of the catheter in the upper right atrium. A total of 0.2 minutes of fluoroscopy time was used. The ultrasound images demonstrate the needle entering th e jugular vein. 9 images of the chest were obtained with image intensifier. IMPRESSION: 1. Successful ultrasonographic and fluoroscopic guided placement of left chest port. RPTAT: QQ .Mundo Wagoner MD, MD Date Time Electronically viewed and signed by .Mundo Wagoner MD, on 05/03/2017 15:55 .R/
[2017-05-03 16:58] VITALS: BP 126/77; PULSE 87; RESP 18
--- NOTE | 2017-05-03 17:01 | PDOCDIS ---
Discharge Instructions CONDITION Patient Condition: Stable HOME CARE INSTRUCTIONS: Diet Instructions: Regular ACTIVITY: Activity Restrictions: Slowly Increase Activity Rest between Activity Avoid heavy lifting Bathing Restrictions: Shower FOLLOW UP/APPOINTMENTS Follow-up Plan Follow up with PCP within 1 week Follow up with Dr Reynolds on Monday JONAH SNOW May 03, 2017 17:01
[2017-05-03] MEDS ORDERED: DOXY-220 PO (17:03)
[2017-05-03] MEDS ORDERED: PRED20TA PO (17:03)
--- NOTE | 2017-05-03 17:06 | CONS ---
Date/Time of Note Date/Time of Note DATE: 05/03/17 TIME: 17:05 Assessment/Plan Assessment/Plan Chief Complaint/Hosp Course #Right-sided breast cancer, ER/HI negative HER-2 positive, with a component of DCIS -pt is cycle 1 day 9 of TCHP -pt will need a total of 6 cycles followed by 1 year of Herceptin -MUGA scan was done which revealed a normal EF at 60% #Neutropenic fevers -likely from her ulcerative colitis -WBC now normal . dc neupogen -can dc antibiotics #Acenaform rash -This is likely secondary to the steroids patient was given as well as the Perjeta and Herceptin -We'll not dose reduce just yet and we'll continue to follow the rash -continue doxycycline with clindamycin #Ulcerative colitis flare -continue prednisone 40 mg q day and 6MP as ordered -will start prednisone taper as out patient. script given to the patient -continue to follow her abdominal pain and diarrhea. #Extensive family history of breast cancer -this includes 6 family members on her mother side at least 2 who had breast cancer earlier than age 40. -BRCA testing has been obtained by patient's breast surgeon #Breast pain -Patient is allergic to [place] -She was told to continue Tylenol for her breast pain #Concern for infertility -I explained to the patient she does not have time to get her eggs frozen prior to starting therapy -we will start Lupron at this time to effectively halt her menstruation and preserve her remaining eggs. I advised her to proceed with egg preservation once she completes her therapy Problems: Consultation Date/Type/Reason Admit Date/Time May 01, 2017 at 22:34 Initial Consult Date 05/02/17 Type of Consultation: Oncology Reason for Consultation Her2+ breast ca Referring Provider: JONAH SNOW 24 HR Interval Summary Free Text/Dictation abdominal pain has improved. no bloody diarrhea. acneaform rash improved Exam/Review of Systems Vital Signs Vitals Vital Signs Date Time Temp Pulse Resp B/P Pulse Ox O2 Delivery O2 Flow Rate FiO2 05/03/17 16:58 98.0 87 18 126/77 99 Room Air Intake and Output 05/02/17 05/02/17 05/03/17 15:00 23:00 07:00 Intake Total 750 ml 1040 ml 1300 ml Balance 750 ml 1040 ml 1300 ml Exam Constitutional: alert, oriented Psych: no complaints Head: normocephalic, other (acneaform rash improved) ENMT: nl external ears & nose Neck: non-tender, supple Respiratory: clear to auscultation Cardiovascular: regular rate and rhythm Gastrointestinal: soft Musculoskeletal: nl extremities to inspection, nl gait and stance Extremities: normal pulses Results Result Diagram: 05/03/17 1046 05/03/17 1046 Results 24 hrs Laboratory Tests Test 05/03/17 10:46 White Blood Count 10.7 # Red Blood Count 3.42 L Hemoglobin 10.8 L Hematocrit 33.0 L Mean Corpuscular Volume 96.5 Mean Corpuscular Hemoglobin 31.6 Mean Corpuscular Hemoglobin Concent 32.7 Red Cell Distribution Width 13.1 Platelet Count 273 Mean Platelet Volume 9.8 Neutrophils % Segmented Neutrophils % (Manual) 6 L Band Neutrophils % (Manual) 9 H Lymphocytes % Lymphocytes % (Manual) 58 H Reactive Lymphocytes % (Manual) 1 H Monocytes % Monocytes % (Manual) 23 H Eosinophils % Basophils % Basophils % (Manual) 1 Myelocytes % (Manual) 2 H Nucleated Red Blood Cells % 0.2 H Neutrophils # Neutrophils # (Manual) 0.7 L Band Neutrophils # 0.9 H Absolute Lymphocytes (Manual) 6.2 H Lymphocytes # Reactive Lymphocytes # 0.1 H Monocytes # Absolute Monocytes (Manual) 2.4 H Eosinophils # Basophils # Basophils # (Manual) 0.1 H Myelocytes # 0.2 H Nucleated Red Blood Cells # Platelet Estimate NORMAL Polychromasia 1+ Poikilocytosis 2+ Prothrombin Time 13.0 Prothrombin Time Ratio 1.0 INR International Normalized Ratio 0.98 Activated Partial Thromboplast Time 32.0 Sodium Level 137 Potassium Level 3.3 L Chloride Level 107 Carbon Dioxide Level 27 Anion Gap 6 L Blood Urea Nitrogen 10 Creatinine 0.69 Glucose Level 80 # Calcium Level 8.2 L Phosphorus Level 2.3 L Magnesium Level 1.6 L Medications Medications Current Medications Diphenhydramine HCl (Benadryl) 25 mg Q6 PRN IV ITCHING Last administered on 10:28; Admin Dose 25 MG; Start 05/01/17 at 23:00 Ondansetron HCl 4 mg 4 mg Q6 PRN IV NAUSEA AND/OR VOMITING Last administered on 05/02/17 08:23; Admin Dose 4 MG; Start 05/01/17 at 23:00 Sodium Chloride 1,000 ml @ 75 mls/hr [id number] IV Last administered on 01:40; Admin Dose 75 MLS/HR; Start 05/01/17 at 23:00 Cefepime HCl (Maxipime 2gm/50 ml (Pmx)) 50 ml @ 100 mls/hr Q8 IVPB Last administered on 05/03/17 05:07; Admin Dose 100 MLS/HR; Start 05/02/17 at 06: 00 Morphine Sulfate (morphine) 2 mg Q3 PRN IV MILD PAIN LEVEL 1-3 Last administered on 05/02/17 03:43; Admin Dose 2 MG; Start 05/02/17 at 02:00 Morphine Sulfate (morphine) 3 mg Q3H PRN IV MODERATE PAIN LEVEL 4-6; Start 05/09 at 02:00 Morphine Sulfate (morphine) 4 mg Q3H PRN IV SEVERE PAIN LEVEL 7-10 Last administered on 05/03/17 12:00; Admin Dose 4 MG; Start 05/02/17 at 02:00 Doxycycline Hyclate (Vibramycin) 100 mg DAILY PO Last administered on 10:03; Admin Dose 100 MG; Start 05/02/17 at 09:00 Oxycodone/ Acetaminophen (Endocet (10/ 325)) 1 tab Q6 PRN PO SEVERE PAIN LEVEL 7-10; Start 05/02/17 at 12:00 Alprazolam (Xanax) 0.5 mg Q8H PRN PO ANXIETY; Start 05/02/17 at 12:00 Lactobacillus Acidophilus/ Rhamnosus (Culturelle) 1 cap BID PO Last administered on 05/03/17 09:59; Admin Dose 1 CAP; Start 05/02/17 at 21:00 Famotidine (Pepcid) 20 mg BID PO Last administered on 05/03/17 10:00; Admin Dose 20 MG; Start 05/02/17 at 12:30 Mercaptopurine (Purinethol) 50 mg DAILY PO Last administered on 05/03/17 10: 16; Admin Dose 50 MG; Start 05/03/17 at 09:00 Prednisone (Prednisone) 40 mg DAILY PO Last administered on 05/03/17 10:01; Admin Dose 40 MG; Start 05/03/17 at 09:00 Cyclobenzaprine HCl (Flexeril) 5 mg PRN PRN PO MUSCLE SPASMS Last administered on 05/02/17t 23:49; Admin Dose 5 MG; Start 05/02/17 at 15:30 Zolpidem Tartrate 10 mg 10 mg HS PRN PO INSOMNIA; Start 05/03/17 at 01:30 Potassium Phosphate/Sodium Chloride (K Phos (Mm)/NS) 260 ml @ 65 mls/hr ONCE ONCE IVPB ; Start 05/03/17 at 15:00; Stop 05/03/17 at 18:59 NA CHRISTIANSEN M.D. May 03, 2017 17:06
--- NOTE | 2017-05-03 18:14 | RADRPT ---
PROCEDURE: Ultrasound guidance for placement of needle in left internal jugular vein. CLINICAL INDICATION: Venous access. TECHNIQUE: Prior to the procedure, informed consent was obtained. Risks including bleeding, infection, and pneu mothorax were explained to the patient. The patient understood and was willing to proceed. A procedu ral pause was performed. The patient's name, date of , and procedure to be performed were verif ied. The central line was inserted with all elements of maximal sterile barrier technique. All of th e following were used: head covering, facial mask, sterile gown, sterile gloves, a large sterile she et, hand hygiene, and 2% chlorhexidine for cutaneous antisepsis. The left neck and anterior/superi or chest wall was prepped and draped in usual sterile fashion. Limited sonography of the left neck was then performed. Noted is a patent left internal jugular vein . Ultrasound images were recorded and stored in the patient's medical record. Following the local injection of Xylocaine, the left internal jugular vein was punctured under sonog raphic guidance with a 20-gauge needle through which a 0.018 inch floppy tip guidewire was advanced into the superior vena cava. The patient tolerated the procedure well. The remainder of the proced ure was performed and dictated under separate cover. COMPARISON: None. FINDINGS: The ultrasound images demonstrate a patent left internal jugular vein. The subsequent images demons trate the needle entering the left internal jugular vein. IMPRESSION: 1. Ultrasound guidance for a needle placement in left internal jugular vein. RPTAT: QQ .Mundo Wagoner MD, Date Time Electronically viewed and signed by .Mundo Wagoner MD, MD on 05/03/2017 18:14 .R/
[2017-05-03 20:43] VITALS: BP 105/60; RESP 20
[2017-05-04] MEDS: morphine 4 MG/ML VIAL IV PRN (00:57)
[2017-05-04 02:07] VITALS: BP 116/76; RESP 18
[2017-05-04] MEDS: DIPHENHYDRAMINE 50 MG INJ IV PRN (02:51)
[2017-05-04] MEDS: SOD CHLORIDE 0.9% 1,000 ML IV SCH (04:20)
[2017-05-04 04:56] VITALS: BP 107/69; PULSE 76; RESP 17
[2017-05-04 05:17] LABS: ABNORMAL IP MESSAGE 1; HEMATOCRIT 32.4 % (37.0-47.0); HEMOGLOBIN 10.6 g/dl (12.0-16.0); MEAN CORPUSCULAR HEMOGLOBIN 31.5 pg (29.0-33.0); MEAN CORPUSCULAR HGB CONC 32.7 g/dl (32.0-37.0); MEAN CORPUSCULAR VOLUME 96.4 fl (82.0-101.0); MEAN PLATELET VOLUME 9.8 fl (7.4-10.4); NUCLEATED RED BLOOD CELLS% 0.2 /100WBC (0.0-0.0); PLATELET COUNT 256 10^3/UL (140-415); RED BLOOD COUNT 3.36 10^6/ul (4.20-5.40); RED CELL DISTRIBUTION WIDTH 13.2 % (11.5-14.5); WHITE BLOOD COUNT 24.3 10^3/ul (4.8-10.8)
[2017-05-04 05:20] LABS: POSITIVE DIFF @See below
[2017-05-04 05:45] LABS: CALCIUM 8.1 mg/dl (8.4-10.2); CREATININE 0.73 mg/dl (0.44-1.00); POTASSIUM 3.6 mmol/L (3.5-5.1)
[2017-05-04 07:35] LABS: METAMYELOCYTES %M 2 % (0-0); MONOCYTES % (M) 22 % (0-11); MYELOCYTES % (M) 1 % (0-0); PLATELET ESTIMATE NORMAL; POIKILOCYTOSIS 2+ (0-0); REACTIVE LYMPHOCYTES% (M) 1 % (0-0); SPHEROCYTES 1+ (0-0)
== END 2017-05-04 05:00 | disposition home or self-care (01) | DRG 809 ==
LOC: E/R 20:48 → MS1 22:34
PROVIDERS: ADMIT Internal Medicine; ATTEND Internal Medicine
PROC: 0JH63XZ Insertion of Tunneled Vascular Access Device into Chest Subcutaneous Tissue and Fascia, Percutaneous Approach (ICD-10-PCS; principal; 2017-05-03)
PROC: 02H633Z Insertion of Infusion Device into Right Atrium, Percutaneous Approach (ICD-10-PCS; 2017-05-03)
PROC: B244ZZZ Ultrasonography of Right Heart (ICD-10-PCS; 2017-05-03)
DX: D70.8 Other neutropenia (principal); K51.90 Ulcerative colitis, unspecified, without complications; C50.911 Malignant neoplasm of unspecified site of right female breast; R50.81 Fever presenting with conditions classified elsewhere; N97.8 Female infertility of other origin; D64.9 Anemia, unspecified; D70.1 Agranulocytosis secondary to cancer chemotherapy; R21 Rash and other nonspecific skin eruption; Z79.899 Other long term (current) drug therapy
CPT/HCPCS: 36415; 36561; 74176; 76942; 80048; 80053; 80076; 81003; 83605; 83735; 84100; 85025; 85610; 85730; 86674; 87040; 87075; 87086; 87177; 93005; 96374; J0690; J0692; J1200; J1644; J2270; J2405; J3010; J3475; J7030; J7050; J7512